=== PATIENT | female | born 1990 | race Hispanic/Latino ===

== ENCOUNTER 2020-03-16 22:24 | Emergency (ER) | payer OTHER ==
[2020-03-16] MEDS ORDERED: ORPHENADRINE CITRATE 30 MG/ML ML ONE (22:48)
[2020-03-16] MEDS ORDERED: KETOROLAC TROMETHAMINE 60 MG/2 ML VIAL ONE (22:49)
== END 2020-03-16 23:10 | disposition home or self-care (01) ==
LOC: EDH 22:24
DX: R51.9 Headache, unspecified (principal); M62.838 Other muscle spasm
CPT/HCPCS: 96372 ×2; 99284; J1885; J2360